=== PATIENT | male | born 1935 | race Caucasian/White ===

== ENCOUNTER 2016-06-14 06:04 | Inpatient (IN) | payer MEDICARE, OTHER ==
[2016-06-13 11:47] LABS: HEMATOCRIT 44.9 % (40.0-51.0); HEMOGLOBIN 15.1 g/dL (13.6-17.8)
[2016-06-13 12:00] LABS: BUN (BLOOD UREA NITROGEN) 12 MG/DL (6-23); CALCIUM, SERUM 8.9 MG/DL (8.5-10.4); CHLORIDE, SERUM 108 MMOL/L (96-112); CO2 (CARBON DIOXIDE) 30 MMOL/L (24-34); CREATININE 0.94 MG/DL (0.70-1.30); GFR AFRICAN AMERICAN 88 ML/MIN (>=60); GFR NON AFRICAN AMERICAN 76 ML/MIN (>=60); GLUCOSE, SERUM 63 MG/DL (60-99); POTASSIUM, SERUM 4.9 MMOL/L (3.5-5.3); SODIUM, SERUM 142 MMOL/L (135-148)
--- NOTE | ~2016-06-14 | OP ---
Record Of Operation [facility] [address] [place]. [address] NAME: ROBIN ARREDONDO : 35 STATUS : ADM IN PAT#: [id number] AGE: 80 ADM/REG DATE : 06/14/16 MR#: [id number] REPORT SERV DATE: 06/14/16 DICTATED BY: TEO FERNANDEZ JR. DATE: 06/14/16 REPORT STATUS : Draft TRANSCRIBED BY: LIONEL DATE: 06/14/16 DATE OF PROCEDURE: 06/14/2016 PREOPERATIVE DIAGNOSIS: Left distal popliteal artery aneurysm. POSTOPERATIVE DIAGNOSIS: Left distal popliteal artery aneurysm. OPERATION: Resection of left distal popliteal artery aneurysm, extension of left femoral- popliteal bypass distally to tibial peroneal trunk, arteriogram to proximal aspect left femoral-popliteal bypass graft, dilation of arterial anastomosis using a 6 x 100 balloon. SURGEON: Teo Fernandez M.D. HISTORY: This is an 80-year-old white male, who has had a left femoral-popliteal bypass graft in the past in addition to a stent placed across the distal anastomosis. He has been followed through the office for years. He was noted to have a distal popliteal artery aneurysm. It was felt because of the outflow that he was not a candidate for any kind of covered stent over this area. After much consternation and thought between the patient and me, we finally decided to operate on this aneurysm. PROCEDURE IN DETAIL: The patient was placed on the operating room table, underwent general endotracheal anesthetic. The left leg was prepped and draped in usual sterile manner. The previous incision for the left distal femoral-popliteal bypass graft anastomosis was opened. Dissection was carried down to the graft coming through subcutaneous tissues and diving down into the popliteal space. A very tedious dissection ensued. Ultimately, the distal anastomosis between the Moline-Dwayne graft and the distal popliteal artery was defined. The proximal aneurysm was then resected. The aneurysmal segment was incompletely excised. The aneurysm actually extended down into the tibioperoneal trunk for several millimeters. I then clamped the anterior tibial artery separately. I then cut away the tibioperoneal trunk, so that I could do a bypass into the tibioperoneal trunk itself given the patient's two-vessel outflow. Because of the patient's heparin allergy, Angiomax was used as an anticoagulant. I then brought a new 6 mm piece of Moline-Dwayne to the operating room table. I then did the distal anastomosis with the artery being very fragile. This was done with a running 6-0 Prolene suture. I then sewed the graft proximally to the old femoral-popliteal bypass graft. I ran a Glendy catheter through the bypass before finishing the suture line. The suture line was then finished and clamps were removed. There was poor Doppler flow into the tibioperoneal trunk. After using several probes that did not seem to work, I finally convinced myself that there was no flow from the bypass graft into the tibioperoneal trunk. I then re-clamped everything. I then opened the distal anastomosis. There was a clot in the graft. I then ran the Glendy catheter all the way up to the groin. I then used arterial dilators to go down into the posterior tibial artery which appeared to be wide open. I then re-did the distal anastomosis. It then clotted again. I then felt that maybe the problem was proximal and the femoral-popliteal bypass graft. A sheath was then inserted into the bypass retrograde. There appeared to be a stenosis at the origin of the left femoral-popliteal bypass graft in the left groin. A wire was then put up through this area. A 6 x 100 balloon was then used to dilate the proximal anastomosis with waste seen in the Record Of Operation [address] [place]. [address] NAME: ROBIN ARREDONDO : 35 STATUS : ADM IN [facility]#: [id number] AGE: 80 ADM/REG DATE : 06/14/16 MR#: [id number] REPORT SERV DATE: 06/14/16 DICTATED BY: TEO FERNANDEZ JR. DATE: 06/14/16 REPORT STATUS : Draft TRANSCRIBED BY: MODL DATE: 06/14/16 balloon. Upon removal of the balloon, there was excellent flow through the bypass graft down into the popliteal space. I then re-did the distal anastomosis using a running 6-0 Prolene suture. Upon release of clamps, there seems to be excellent flow into the tibioperoneal trunk and into the posterior tibial artery. We could hear a posterior tibial Doppler pulse at the ankle. Angiomax was then turned off. Venous bleeding was stopped. A drain was placed and brought out inferiorly. The wound was then closed with 2-0 Vicryl in the subcutaneous space. The skin was closed with a running 3-0 nylon. The patient tolerated the procedure well and taken back to recovery room in serious condition. There were no intraoperative complications. The estimated blood loss was 1200 mL due primarily to venous bleeding. MARTIN/LIONEL Teo Fernandez Jr., M.D. / [id number] CC: Milagros Shaw Jr., M.D.
--- NOTE | ~2016-06-14 | OP ---
Record Of Operation [facility] [address] [place]. [address] NAME: ROBIN ARREDONDO : 35 STATUS : ADM IN PAT#: [id number] AGE: 80 ADM/REG DATE : 06/14/16 MR#: [id number] REPORT SERV DATE: 06/14/16 DICTATED BY: TEO FERNANDEZ JR. DATE: 06/14/16 REPORT STATUS : Draft TRANSCRIBED BY: LIONEL DATE: 06/14/16 DATE OF PROCEDURE: 06/14/2016 PREOPERATIVE DIAGNOSIS: Postoperative thrombosis of left femoral-popliteal bypass graft. POSTOPERATIVE DIAGNOSIS: Postoperative thrombosis of left femoral-popliteal bypass graft. OPERATION: Glendy thrombectomy of same, arteriogram of left posterior tibial artery, angioplasty of left posterior tibial artery using 3 x 120 balloon, extension of fem-pop bypass graft into posterior tibial artery. SURGEON: Teo Fernandez M.D. VASCULAR FELLOW: Anupama Hernandez MD. HISTORY: This is an 80-year-old white male, who had an operation earlier today, which was extremely extensive. When he left the operating room at 12:30 in the afternoon, he had Doppler flow in his left ankle. In recovery room, he lost his Doppler flow. He was brought back to the operating room after an extensive conversation with the . PROCEDURE: The patient was placed on the operating room table. He underwent a general endotracheal anesthetic. Left leg was re-prepped and draped in usual sterile manner. Skin sutures and fascial sutures were removed. The graft was easily seen. He had been previously sewn in distally in the tibial peroneal trunk. An 11-blade was used to cut these Prolene sutures out of the suture line distally. There was some back bleeding in the posterior tibial artery. A wire was then inserted into the posterior tibial artery down to the ankle. A sheath was inserted over the wire. Arteriogram of the posterior tibial artery was then done. There was a middle section of the artery that was stenotic. A 3 x 120 balloon was then inserted all the way down the ankle, and the entire posterior tibial artery was then dilated. This seemed to improve flow to the foot. I then tried to thread a wire down to the peroneal artery. It seemed to occlude in the first 2 to 3 cm. I therefore tied it off. I then ran a wire up into the left groin. I used a Glendy catheter over a wire to thrombectomize the left fem-pop bypass graft. We had good arterial inflow. I then used the Kinney-Dwayne bypass, it had been previously sewn to the fem-pop bypass and sewed it down to the posterior tibial artery in an end-to-end fashion with spatulation. Angiomax was used during the case because of the patient's heparin allergy. Upon release of clamps, there was excellent flow into the posterior tibial artery. We also heard a Doppler flow at the ankle. The Angiomax was then turned off. Focal bleeders were cauterized, although it generally had an ooze in the popliteal space. The drain was placed and brought out inferiorly. The wound was closed with 3-0 Vicryl in the subcutaneous tissues and 3-0 nylon on the skin. The patient tolerated the procedure remarkably well considering everything. Estimated blood loss was 800 mL. There were no intraoperative complications. Record Of Operation [address] [address] NAME: ROBIN ARREDONDO : 35 STATUS : ADM IN PAT#: [id number] AGE: 80 ADM/REG DATE : 06/14/16 MR#: [id number] REPORT SERV DATE: 06/14/16 DICTATED BY: TEO FERNANDEZ JR. DATE: 06/14/16 REPORT STATUS : Draft TRANSCRIBED BY: LIONEL DATE: 06/14/16 DF/LIONEL Teo Fernandez Jr., M.D. / [id number] CC: Teo Fernandez Jr., M.D.
--- NOTE | ~2016-06-14 | DS ---
Discharge Summary [facility] [address] [place]. [address] NAME: ROBIN ARREDONDO : 35 STATUS : DIS IN PAT#: [id number] AGE: 80 ADM/REG DATE : 06/14/16 MR#: [id number] REPORT SERV DATE: 06/28/16 DICTATED BY: TEO FERNANDEZ JR. DATE: 06/27/16 REPORT STATUS : Draft TRANSCRIBED BY: LIONEL DATE: 06/27/16 Data Collection from hospitalization DISCHARGE DIAGNOSIS(ES): 1. Left distal popliteal artery aneurysm. 2. Postoperative thrombosis of the left femoropopliteal bypass graft. 3. Dementia. 4. Previous cerebrovascular accident. 5. Peripheral vascular disease. 6. Hypertension. 7. Hyperlipidemia. 8. History of Alzheimer disease. 9. Anxiety and depression. CONSULTATIONS: None. PROCEDURES PERFORMED: 1. Resection of left distal popliteal artery aneurysm, extension of left femoral popliteal bypass distally to tibial peroneal trunk, arteriogram to proximal aspect, left femoral popliteal bypass graft, dilation of arterial anastomosis using a 6 x 100 balloon, 06/14/2016. 2. Glendy thrombectomy of same, arteriogram of left posterior tibial artery, angioplasty of left posterior tibial artery using 3 x 120 balloon, extension of femoral-popliteal bypass graft into posterior tibial artery, 06/14/2016. PATHOLOGY: Left popliteal aneurysmal sac, benign. Vascular structure with atherosclerotic change with minimal hyperplasia, hemorrhagic material in the wall clinically and aneurysmal cyst, focal chronic inflammation and old hemorrhage, hemorrhagic material clinically thrombus of left common femoral artery. MEDICATIONS: Coreg 3.125 mg twice daily, clobetasol 0.05 mg to the face and arms as directed, vitamin D3 4000 units daily, Atrovent nasal spray one spray each nostril 3 times daily, Coumadin 3 mg at bedtime, Norvasc 2.5 mg at bedtime, Halfprin 81 mg daily, Flexeril 10 mg three times daily as needed, Okatie 5/325 one or two every four hours as needed, Metrogel applied daily as needed, Crestor 5 mg at bedtime, and Okatie 5/325 one or two every four hours as needed. CONDITION AT DISCHARGE: Upon discharge, he did appear to be doing well and had no complaints. DISPOSITION: He was discharged home to continue a regular diet with activity as tolerated. He was to follow up with me in the office in two weeks. HOSPITAL COURSE: This 80-year-old male had a previous left leg bypass and had 2 revisions. He had been found to have a left popliteal aneurysm and was admitted for surgery and further evaluation. The benefits, risks, and alternatives had been explained in detail to the patient and guardian, and they were agreeable to proceed. He was admitted for this and further treatment. Upon admission to the hospital, he had been taken to the operating room Discharge [address] [place]. [address] NAME: ROBIN ARREDONDO : 35 STATUS : DIS IN PAT#: [id number] AGE: 80 ADM/REG DATE : 06/14/16 MR#: [id number] REPORT SERV DATE: 06/28/16 DICTATED BY: TEO FERNANDEZ JR. DATE: 06/27/16 REPORT STATUS : Draft TRANSCRIBED BY: LIONEL DATE: 06/27/16 where he did undergo the above procedure. He did tolerate this well and was transferred to the recovery room. When he left the operating room at 1230 hours in the afternoon, he did have a Doppler flow in the left ankle; however, in the recovery room, he lost his Doppler flow and was taken back to the operating room after an extensive conversation with his where he did undergo the above Glendy thrombectomy. He did tolerate this well and was transferred to the recovery room. On postop day #1, his left foot was warm, and he did have a palpable pulse. His hematocrit was at 26, and he had been placed on IV iron. He was on dopamine and luis carlos which were both being weaned. He was noted to have some mild left toe numbness. He had been evaluated by Physical Therapy. On postop day #2, his INR was at 1.8, hematocrit 27, creatinine 0.6 off dopamine. He was still on luis carlos and was noted to have some oozing from the drain which was to be left for one more day. He was afebrile, and his vital signs had remained stable. His INR was at 1.8 and creatinine 0.6. His incisions did look good. On postop day #3, he was now all off luis carlos as well and his drain had been removed. He was requesting discharge. However, I was concerned about ambulation at that point. His hematocrit had dropped to 22, and he did undergo transfusion with 1 unit of packed red blood cells. His INR was at 2.1. On postop day #4, he was afebrile and his vital signs had remained stable. His left leg wound looked great, and he had no new complaints noted. On postop day 5, he did continue to do well and was noted to have stayed secondary to some dizziness. His leg wound looked okay. He was continued on his current medications. He did remain in stable condition and as he continued to do well, he was then discharged on 06/20 with the above instructions. Information collected by: Carine FofanaILizzie. I submit the above information as my discharge summary. HAYLEY/LIONEL Teo Fernandez Jr., M.D. / [id number] CC: Milagros Shaw Jr., M.D.
[~2016-06-14 06:04] MED LIST: ARICEPT10 PO; ATRONASAL3 NAS; AUG BETAMET0.053 EX; C25 PO; C5 PO; CELEXA10 PO; CENTRUM PO; CENTRUM TAB1 TAB PO; CHANTIX1 PO; CLOBETASOL E0.05 % EX; CLOBETASOL0.053 EX; CLOBETASOL0.053 TOP; COREG3 PO; COUMADIN3 MG PO; COZ50 PO; CRESTOR5 MG PO; CYANO1000T PO; FINACEA15 % EX; FINACEA15 % TOP; FLEX PO; HALF81 PO; HYDROCORT2.5 % TOP; LOTRISONE CREAM45 GM TOP; M-CLEAR WC PO; MEDROL32 MG PO; METROGEL1 % TOP; MICROZIDE PO; MULTIPLE VIT PO; MUSCLE RU3 TOP; NAMENDA10 MG PO; NAMENXR28 PO; NORCO1 TA1 PO; NORV25 PO; OSTEO BI-FLEX1 EACH PO; OTC MUSCLE RUB; P20 PO; PROTOPIC0.1 % EX; PROTOPIC0.1 % TOP; ULTRAM50 PO; VALISONE OINT 015 GM T; VITAMIN D31000 UNIT PO; VITC500 PO; ZANTAC 75 PO; ZOCOR10 PO; ZOSTRIX 0.025% TOP; [UNRECOGNIZED DRUG - OTHER] PO; [UNRECOGNIZED DRUG - OTHER] T
[2016-06-14 06:53] LABS: INTERNATIONAL NORMAL RATI 1.5 UNITS (-)
[2016-06-14 13:57] LABS: BASOPHILS 0.2 %; BASOPHILS ABSOLUTE 0.01 10/3/uL (0.0-0.16); EOSINOPHILS 0.2 %; EOSINOPHILS ABSOLUTE 0.01 10/3/uL (0.0-0.53); HEMOGLOBIN 10.4 g/dL (13.6-17.8); IMMATURE GRANULOCYTES 0.7 %; IMMATURE GRANULOCYTES ABSOLUTE 0.03 10/3/uL (0.0-0.11); LYMPHOCYTES 10.3 %; LYMPHOCYTES ABSOLUTE 0.44 10/3/uL (0.67-4.30); MEAN CORPUS HGB CONC 32.7 g/dL (32.0-36.0); MEAN CORPUSCULAR HEMOGLOB 31.7 pg (26.0-34.0); MEAN PLATELET VOLUME 9.5 fL (9.2-13.0); MONOCYTES 0.9 %; MONOCYTES ABSOLUTE 0.04 10/3/uL (0.21-1.20); NEUTROPHILS 87.7 %; NEUTROPHILS ABSOLUTE 3.76 10/3/uL (2.02-8.40); PLATELET COUNT 89 10/3/uL (150-400); WHITE BLOOD CELLS 4.3 10/3/uL (4.5-10.5)
[2016-06-14 13:59] LABS: HEMATOCRIT 31.8 % (40.0-51.0); RED CELL COUNT 3.28 10/6/uL (4.7-6.1)
[2016-06-14 14:00] LABS: MANUAL DIFF NO %
[2016-06-14 14:11] LABS: BUN (BLOOD UREA NITROGEN) 15 MG/DL (6-23); CHLORIDE, SERUM 112 MMOL/L (96-112); CO2 (CARBON DIOXIDE) 28 MMOL/L (24-34); CREATININE 0.78 MG/DL (0.70-1.30); GFR AFRICAN AMERICAN 99 ML/MIN (>=60); GFR NON AFRICAN AMERICAN 85 ML/MIN (>=60); POTASSIUM, SERUM 4.8 MMOL/L (3.5-5.3); SGOT(AST) 13 U/L (5-40); SGPT(ALT) 11 U/L (5-65); SODIUM, SERUM 142 MMOL/L (135-148)
[2016-06-14 14:13] LABS: A/G RATIO 1.7 (0.7-1.9); ALBUMIN 3.1 G/DL (3.5-5.0); ALKALINE PHOSPHATASE 49 U/L (45-117); CALCIUM, SERUM 7.6 MG/DL (8.5-10.4); GLOBULIN 1.8 G/DL (2.5-4.1); GLUCOSE, SERUM 124 MG/DL (60-99); TOTAL BILIRUBIN 1.1 MG/DL (0-1.2); TOTAL PROTEIN 4.9 G/DL (6.0-8.5)
[2016-06-14 18:24] LABS: BASOPHILS 0.1 %; BASOPHILS ABSOLUTE 0.01 10/3/uL (0.0-0.16); EOSINOPHILS 0 %; HEMATOCRIT 34.3 % (40.0-51.0); HEMOGLOBIN 11.7 g/dL (13.6-17.8); IMMATURE GRANULOCYTES 0.3 %; IMMATURE GRANULOCYTES ABSOLUTE 0.03 10/3/uL (0.0-0.11); LYMPHOCYTES 7.4 %; LYMPHOCYTES ABSOLUTE 0.75 10/3/uL (0.67-4.30); MEAN CORPUS HGB CONC 34.1 g/dL (32.0-36.0); MEAN CORPUSCULAR HEMOGLOB 31.5 pg (26.0-34.0); MEAN PLATELET VOLUME 9.6 fL (9.2-13.0); MONOCYTES 1.5 %; MONOCYTES ABSOLUTE 0.15 10/3/uL (0.21-1.20); NEUTROPHILS 90.7 %; PLATELET COUNT 89 10/3/uL (150-400); RBC DISTRIBUTION WIDTH 15.2 % (12.0-16.0); RED CELL COUNT 3.71 10/6/uL (4.7-6.1)
[2016-06-14 18:25] LABS: MANUAL DIFF NO %; MEAN CORPUSCULAR VOLUME 92.5 fL (80-100); WHITE BLOOD CELLS 10.1 10/3/uL (4.5-10.5)
[2016-06-14 18:35] LABS: PARTIAL THROMBO TIME 119.8 SEC (22.5-37.2)
[2016-06-14 18:36] LABS: INTERNATIONAL NORMAL RATI 5.3 UNITS (-); PROTIME (NOT ORD) 48.4 SEC (12.0-14.5)
[2016-06-14 19:31] LABS: PARTIAL THROMBO TIME 93.9 SEC (22.5-37.2)
[2016-06-14 20:04] LABS: INTERNATIONAL NORMAL RATI 3.7 UNITS (-)
[2016-06-14 20:05] LABS: PROTIME (NOT ORD) 36.5 SEC (12.0-14.5)
[2016-06-15 00:30] LABS: BASOPHILS 0 %; EOSINOPHILS 0 %; HEMATOCRIT 28.9 % (40.0-51.0); HEMOGLOBIN 9.9 g/dL (13.6-17.8); IMMATURE GRANULOCYTES 0.5 %; IMMATURE GRANULOCYTES ABSOLUTE 0.06 10/3/uL (0.0-0.11); LYMPHOCYTES ABSOLUTE 1.14 10/3/uL (0.67-4.30); MANUAL DIFF NO %; MEAN CORPUS HGB CONC 34.3 g/dL (32.0-36.0); MEAN CORPUSCULAR HEMOGLOB 31.2 pg (26.0-34.0); MEAN CORPUSCULAR VOLUME 91.2 fL (80-100); MEAN PLATELET VOLUME 9.8 fL (9.2-13.0); MONOCYTES 11.2 %; MONOCYTES ABSOLUTE 1.27 10/3/uL (0.21-1.20); NEUTROPHILS 78.3 %; NEUTROPHILS ABSOLUTE 8.88 10/3/uL (2.02-8.40); PLATELET COUNT 89 10/3/uL (150-400); RBC DISTRIBUTION WIDTH 15.9 % (12.0-16.0); RED CELL COUNT 3.17 10/6/uL (4.7-6.1); WHITE BLOOD CELLS 11.4 10/3/uL (4.5-10.5)
[2016-06-15 00:38] LABS: PARTIAL THROMBO TIME 48.7 SEC (22.5-37.2)
[2016-06-15 00:39] LABS: PROTIME (NOT ORD) 22.2 SEC (12.0-14.5)
[2016-06-15 00:46] LABS: CHLORIDE, SERUM 110 MMOL/L (96-112); CREATININE 0.82 MG/DL (0.70-1.30); GFR AFRICAN AMERICAN 97 ML/MIN (>=60); GFR NON AFRICAN AMERICAN 84 ML/MIN (>=60); POTASSIUM, SERUM 4.3 MMOL/L (3.5-5.3); SGOT(AST) 14 U/L (5-40); SGPT(ALT) 11 U/L (5-65); SODIUM, SERUM 140 MMOL/L (135-148)
[2016-06-15 00:59] LABS: A/G RATIO 1.7 (0.7-1.9); ALBUMIN 2.9 G/DL (3.5-5.0); ALKALINE PHOSPHATASE 45 U/L (45-117); BUN (BLOOD UREA NITROGEN) 17 MG/DL (6-23); CALCIUM, SERUM 7.2 MG/DL (8.5-10.4); CO2 (CARBON DIOXIDE) 23 MMOL/L (24-34); GLOBULIN 1.7 G/DL (2.5-4.1); GLUCOSE, SERUM 156 MG/DL (60-99); TOTAL BILIRUBIN 1.4 MG/DL (0-1.2); TOTAL PROTEIN 4.6 G/DL (6.0-8.5)
[2016-06-15 03:37] LABS: BASOPHILS 0.1 %; BASOPHILS ABSOLUTE 0.01 10/3/uL (0.0-0.16); EOSINOPHILS 0 %; HEMATOCRIT 26.4 % (40.0-51.0); HEMOGLOBIN 9.1 g/dL (13.6-17.8); IMMATURE GRANULOCYTES 0.4 %; IMMATURE GRANULOCYTES ABSOLUTE 0.04 10/3/uL (0.0-0.11); LYMPHOCYTES 12.1 %; LYMPHOCYTES ABSOLUTE 1.22 10/3/uL (0.67-4.30); MANUAL DIFF NO %; MEAN CORPUS HGB CONC 34.5 g/dL (32.0-36.0); MEAN CORPUSCULAR HEMOGLOB 31.4 pg (26.0-34.0); MEAN PLATELET VOLUME 9.7 fL (9.2-13.0); MONOCYTES 11.5 %; MONOCYTES ABSOLUTE 1.16 10/3/uL (0.21-1.20); NEUTROPHILS 75.9 %; NEUTROPHILS ABSOLUTE 7.68 10/3/uL (2.02-8.40); PLATELET COUNT 79 10/3/uL (150-400); RBC DISTRIBUTION WIDTH 15.9 % (12.0-16.0); WHITE BLOOD CELLS 10.1 10/3/uL (4.5-10.5)
[2016-06-15 03:58] LABS: BUN (BLOOD UREA NITROGEN) 15 MG/DL (6-23); CALCIUM, SERUM 7.4 MG/DL (8.5-10.4); CHLORIDE, SERUM 110 MMOL/L (96-112); CO2 (CARBON DIOXIDE) 25 MMOL/L (24-34); CREATININE 0.81 MG/DL (0.70-1.30); GFR AFRICAN AMERICAN 97 ML/MIN (>=60); GFR NON AFRICAN AMERICAN 84 ML/MIN (>=60); GLUCOSE, SERUM 152 MG/DL (60-99); PHOSPHORUS, SERUM 1.9 MG/DL (2.5-4.5); POTASSIUM, SERUM 4.3 MMOL/L (3.5-5.3); SODIUM, SERUM 142 MMOL/L (135-148)
[2016-06-15 04:05] LABS: PLATELET ESTIMATE DEC (ADEQUATE); RBC MORPHOLOGY NORM (NORMAL)
[2016-06-15 10:00] LABS: INTERNATIONAL NORMAL RATI 1.6 UNITS (-)
[2016-06-15 10:03] LABS: PROTIME (NOT ORD) 19.2 SEC (12.0-14.5)
[2016-06-16 04:04] LABS: BASOPHILS 0.2 %; BASOPHILS ABSOLUTE 0.02 10/3/uL (0.0-0.16); EOSINOPHILS 2.9 %; EOSINOPHILS ABSOLUTE 0.28 10/3/uL (0.0-0.53); HEMOGLOBIN 7.8 g/dL (13.6-17.8); IMMATURE GRANULOCYTES 0.6 %; IMMATURE GRANULOCYTES ABSOLUTE 0.06 10/3/uL (0.0-0.11); LYMPHOCYTES 15.4 %; LYMPHOCYTES ABSOLUTE 1.47 10/3/uL (0.67-4.30); MEAN CORPUS HGB CONC 34.2 g/dL (32.0-36.0); MEAN CORPUSCULAR HEMOGLOB 31.7 pg (26.0-34.0); MEAN CORPUSCULAR VOLUME 92.7 fL (80-100); MEAN PLATELET VOLUME 9.9 fL (9.2-13.0); MONOCYTES 12.6 %; NEUTROPHILS 68.3 %; NEUTROPHILS ABSOLUTE 6.49 10/3/uL (2.02-8.40); PLATELET COUNT 67 10/3/uL (150-400); RBC DISTRIBUTION WIDTH 16.2 % (12.0-16.0); RED CELL COUNT 2.46 10/6/uL (4.7-6.1); WHITE BLOOD CELLS 9.5 10/3/uL (4.5-10.5)
[2016-06-16 04:05] LABS: HEMATOCRIT 22.8 % (40.0-51.0); MANUAL DIFF NO %
[2016-06-16 04:10] LABS: INTERNATIONAL NORMAL RATI 1.8 UNITS (-); PROTIME (NOT ORD) 20.3 SEC (12.0-14.5)
[2016-06-16 04:19] LABS: BUN (BLOOD UREA NITROGEN) 12 MG/DL (6-23); CALCIUM, SERUM 7.6 MG/DL (8.5-10.4); CHLORIDE, SERUM 114 MMOL/L (96-112); CO2 (CARBON DIOXIDE) 26 MMOL/L (24-34); CREATININE 0.65 MG/DL (0.70-1.30); GFR AFRICAN AMERICAN 106 ML/MIN (>=60); GFR NON AFRICAN AMERICAN 92 ML/MIN (>=60); POTASSIUM, SERUM 4.2 MMOL/L (3.5-5.3); SODIUM, SERUM 147 MMOL/L (135-148)
[2016-06-16 04:21] LABS: GLUCOSE, SERUM 103 MG/DL (60-99)
[2016-06-16 04:27] LABS: PLATELET ESTIMATE DEC (ADEQUATE); RBC MORPHOLOGY NORM (NORMAL)
[2016-06-16 15:39] LABS: PHOSPHORUS, SERUM 1.9 MG/DL (2.5-4.5)
[2016-06-17 04:02] LABS: INTERNATIONAL NORMAL RATI 2.1 UNITS (-)
[2016-06-17 08:24] LABS: BASOPHILS 0.2 %; BASOPHILS ABSOLUTE 0.01 10/3/uL (0.0-0.16); EOSINOPHILS 6.4 %; EOSINOPHILS ABSOLUTE 0.28 10/3/uL (0.0-0.53); HEMATOCRIT 23.6 % (40.0-51.0); HEMOGLOBIN 7.9 g/dL (13.6-17.8); IMMATURE GRANULOCYTES 0.7 %; IMMATURE GRANULOCYTES ABSOLUTE 0.03 10/3/uL (0.0-0.11); LYMPHOCYTES 17.5 %; LYMPHOCYTES ABSOLUTE 0.76 10/3/uL (0.67-4.30); MEAN CORPUS HGB CONC 33.5 g/dL (32.0-36.0); MEAN CORPUSCULAR HEMOGLOB 31.2 pg (26.0-34.0); MEAN CORPUSCULAR VOLUME 93.3 fL (80-100); MEAN PLATELET VOLUME 9.6 fL (9.2-13.0); MONOCYTES 12.6 %; MONOCYTES ABSOLUTE 0.55 10/3/uL (0.21-1.20); NEUTROPHILS 62.6 %; NEUTROPHILS ABSOLUTE 2.72 10/3/uL (2.02-8.40); PLATELET COUNT 66 10/3/uL (150-400); RBC DISTRIBUTION WIDTH 15.4 % (12.0-16.0); RED CELL COUNT 2.53 10/6/uL (4.7-6.1)
[2016-06-17 08:26] LABS: MANUAL DIFF NO %; WHITE BLOOD CELLS 4.4 10/3/uL (4.5-10.5)
[2016-06-18 05:14] LABS: BASOPHILS 0.4 %; BASOPHILS ABSOLUTE 0.02 10/3/uL (0.0-0.16); EOSINOPHILS 7.3 %; EOSINOPHILS ABSOLUTE 0.34 10/3/uL (0.0-0.53); HEMOGLOBIN 9.3 g/dL (13.6-17.8); IMMATURE GRANULOCYTES 0.9 %; IMMATURE GRANULOCYTES ABSOLUTE 0.04 10/3/uL (0.0-0.11); LYMPHOCYTES 25.2 %; LYMPHOCYTES ABSOLUTE 1.17 10/3/uL (0.67-4.30); MEAN CORPUS HGB CONC 34.2 g/dL (32.0-36.0); MEAN CORPUSCULAR HEMOGLOB 31.6 pg (26.0-34.0); MEAN CORPUSCULAR VOLUME 92.5 fL (80-100); MEAN PLATELET VOLUME 10.2 fL (9.2-13.0); MONOCYTES 10.8 %; NEUTROPHILS 55.4 %; NEUTROPHILS ABSOLUTE 2.57 10/3/uL (2.02-8.40); RBC DISTRIBUTION WIDTH 15.9 % (12.0-16.0); RED CELL COUNT 2.94 10/6/uL (4.7-6.1); WHITE BLOOD CELLS 4.6 10/3/uL (4.5-10.5)
[2016-06-18 05:19] LABS: HEMATOCRIT 27.2 % (40.0-51.0); MANUAL DIFF NO %; PLATELET COUNT 103 10/3/uL (150-400)
[2016-06-18 05:28] LABS: PROTIME (NOT ORD) 22.7 SEC (12.0-14.5)
[2016-06-19 07:26] LABS: INTERNATIONAL NORMAL RATI 1.8 UNITS (-); PROTIME (NOT ORD) 20.7 SEC (12.0-14.5)
[2016-06-20 05:55] LABS: INTERNATIONAL NORMAL RATI 1.9 UNITS (-); PROTIME (NOT ORD) 21.7 SEC (12.0-14.5)
== END 2016-06-20 14:47 | disposition home or self-care (01) | DRG 271 ==
LOC: SDC/OF 06:04 → CVICU 13:28 → 2SO 06-17 11:27
PROVIDERS: Surgery
PROC: 047S3ZZ Dilation of Left Posterior Tibial Artery, Percutaneous Approach (ICD-10-PCS; 2016-06-14)
PROC: B41G1ZZ Fluoroscopy of Left Lower Extremity Arteries using Low Osmolar Contrast (ICD-10-PCS; 2016-06-14)
PROC: 041L0ZL Bypass Left Femoral Artery to Popliteal Artery, Open Approach (ICD-10-PCS; principal; 2016-06-14 07:45)
PROC: 04CN3ZZ Extirpation of Matter from Left Popliteal Artery, Percutaneous Approach (ICD-10-PCS; 2016-06-14 07:45)
PROC: 047S3ZZ Dilation of Left Posterior Tibial Artery, Percutaneous Approach (ICD-10-PCS; 2016-06-14 07:45)
PROC: 04CS3ZZ Extirpation of Matter from Left Posterior Tibial Artery, Percutaneous Approach (ICD-10-PCS; 2016-06-14 07:45)
DX: I72.4 Aneurysm of artery of lower extremity (principal); T82.868A Thrombosis due to vascular prosthetic devices, implants and grafts, initial encounter; G30.9 Alzheimer's disease, unspecified; I10 Essential (primary) hypertension; F02.80 Dementia in other diseases classified elsewhere, unspecified severity, without behavioral disturbance, psychotic disturbance, mood disturbance, and anxiety; E78.5 Hyperlipidemia, unspecified; M19.90 Unspecified osteoarthritis, unspecified site; F41.9 Anxiety disorder, unspecified; F32.9 Major depressive disorder, single episode, unspecified; Z86.718 Personal history of other venous thrombosis and embolism; Z98.890 Other specified postprocedural states; Z88.8 Allergy status to other drugs, medicaments and biological substances; Z91.030 Bee allergy status; Z88.0 Allergy status to penicillin; Z91.013 Allergy to seafood; Z86.73 Personal history of transient ischemic attack (TIA), and cerebral infarction without residual deficits
CPT/HCPCS: 35876; 36415; 37224; 37228; 71010; 75710; 80048; 80053; 82330; 83735; 84100; 85014; 85018; 85025; 85610; 85730; 86850; 86900; 86901; 86920; 87641; 88304; 93005; 97110-GP; 97116-GP; 97161-GP; 97530-GP; A9270-GY; C1725; C1751; C1757; C1768; C1769; C1894; G8978-CK-GP; G8979-CJ-GP; J0583; J0690; J2370; J2405; J2710; J2916; J3010; J3370; P9016; P9045; P9059; Q9966